=== PATIENT | female | born 1995 ===

== ENCOUNTER 2017-05-26 13:08 | Emergency (ER) | payer SELFPAY ==
--- NOTE | 2017-05-26 14:24 | ED.PDOC ---
History of Present Illness - General Chief Complaint: Abdominal Pain Time Seen by Provider: 05/26/17 14:10 Information Source: patient Exam Limitations: no limitations - History of Present Illness Initial Comments: Patient comes in with 1 day history of LLQ abdominal pain. Pain is moderate, dull, and like something is cramping in there. It has been constant since this morning and is worse with movement and deep breathing. She denies any trauma or recent injury or change in activity. At first she thought it might be menses cramps but states now it feels different. Patient states on had a hard stool with some pain and subsequent BRBPR. She has continued to have some on the toliet paper Abdominal Pain Onset Location: LUQ, LLQ Pain Radiation: no radiation Quality: moderate Timing/Duration: 7-24 hours Improving Factors: nothing Worsening Factors: movement Associated Symptoms: denies symptoms Review of Systems - Review of Systems Constitutional: States: no symptoms reported. Denies: chills, fever EENTM: States: no symptoms reported. Denies: ear pain, nose pain, throat pain Respiratory: States: no symptoms reported. Denies: cough, short of breath, wheezing Cardiology: States: no symptoms reported. Denies: chest pain, edema, palpitations Gastrointestinal/Abdominal: States: see HPI Genitourinary: States: no symptoms reported. Denies: dysuria, frequency Musculoskeletal: States: no symptoms reported Skin: States: no symptoms reported Family Medical History - Family History Mother Family History: Unknown Physical Exam - Physical Exam General Appearance: Alert, No apparent distress Eyes, Ears, Nose, Throat Exam: PERRL/EOMI, normal ENT inspection, TMs normal, pharynx normal Neck: non-tender, full range of motion, supple, normal inspection Respiratory: chest non-tender, lungs clear, normal breath sounds, no respiratory distress Cardiovascular/Chest: normal peripheral pulses, regular rate, rhythm, no edema, no gallop, no JVD, no murmur Peripheral Pulses: No deficit Gastrointestinal/Abdominal: normal bowel sounds, soft, other - Mild TTP to LLQ with no rebound no guarding normal BS no masses Rectal Exam: normal exam, other - no stigmata of recent bleed negative guaiac no masses Progress - Progress Progress: 05/26/17 15:32 05/26/17 14:42 URINE CULTURE W/COLONY COUNT Stat Laboratory Results WBC 11.3 K/mm3 (4.8-10.8) H 05/26/17 14:42 RBC 5.05 M/mm3 (4.20-5.40) 05/26/17 14:42 Hgb 13.8 gm/dL (12.0-16.0) 05/26/17 14:42 Hct 41.6 % (36.0-47.0) 05/26/17 14:42 MCV 82.4 fl (81.0-99.0) 05/26/17 14:42 MCH 27.4 pg (27.0-31.0) 05/26/17 14:42 MCHC 33.3 g/dL (33.0-37.0) 05/26/17 14:42 RDW 13.6 % (11.5-14.5) 05/26/17 14:42 Plt Count 306 K/mm3 (130-400) 05/26/17 14:42 MPV 7.7 fl (7.40-10.4) 05/26/17 14:42 Absolute Neuts (auto) 7.10 K/uL (1.8-6.8) H 05/26/17 14:42 Absolute Lymphs (auto) 3.10 K/uL (1.0-3.4) 05/26/17 14:42 Absolute Monos (auto) 0.90 K/uL (0.2-0.8) H 05/26/17 14:42 Absolute Eos (auto) 0.20 K/uL (0.0-0.4) 05/26/17 14:42 Absolute Basos (auto) 0.10 K/uL (0.0-0.1) 05/26/17 14:42 Neutrophils % 62.4 % (42.0-78.0) 05/26/17 14:42 Lymphocytes % 27.1 % (20.0-50.0) 05/26/17 14:42 Monocytes % 8.3 % (2.0-9.0) 05/26/17 14:42 Eosinophils % 1.6 % (1.0-5.0) 05/26/17 14:42 Basophils % 0.6 % (0.0-2.0) 05/26/17 14:42 Sodium 141 mmol/L (135-145) 05/26/17 14:42 Potassium 4.3 mmol/L (3.6-5.0) 05/26/17 14:42 Chloride 106 mmol/L (101-111) 05/26/17 14:42 Carbon Dioxide 29 mmol/L (21-31) 05/26/17 14:42 Anion Gap 10.3 (12-18) L 05/26/17 14:42 BUN 12 mg/dL (7-18) 05/26/17 14:42 Creatinine 0.88 mg/dL (0.6-1.3) 05/26/17 14:42 BUN/Creatinine Ratio 13.6 (10-20) 05/26/17 14:42 Random Glucose 92 mg/dL (70-105) 05/26/17 14:42 Serum Osmolality 280.7 mOsm/L (275-295) 05/26/17 14:42 Calcium 9.7 mg/dL (8.4-10.2) 05/26/17 14:42 Total Bilirubin 0.5 mg/dL (0.2-1.0) 05/26/17 14:42 AST 30 IU/L (10-42) 05/26/17 14:42 ALT 54 IU/L (10-60) 05/26/17 14:42 Alkaline Phosphatase 50 IU/L (42-121) 05/26/17 14:42 Serum Total Protein 8.0 gm/dL (6.4-8.2) 05/26/17 14:42 Albumin 4.1 g/dl (3.2-5.5) 05/26/17 14:42 Globulin 3.9 gm/dL (2.3-3.5) H 05/26/17 14:42 Albumin/Globulin Ratio 1.1 (1.1-1.9) 05/26/17 14:42 Amylase 40 U/L (28-100) 05/26/17 14:42 Lipase 30 U/L (22-51) 05/26/17 14:42 Serum HCG, Qual Negative 05/26/17 14:42 Urine Color Yellow (Yellow) 05/26/17 14:42 Urine Appearance Sl cloudy (Clear) 05/26/17 14:42 Urine pH 6.0 (4.5-7.8) 05/26/17 14:42 Ur Specific [place] 1.025 (1.005-1.030) 05/26/17 14:42 Urine Protein 30 mg/dL 05/26/17 14:42 Urine Glucose (UA) Negative mg/dL (Negative) 05/26/17 14:42 Urine Ketones Negative mg/dL (NEGATIVE) 05/26/17 14:42 Urine Blood Large (Negative) H 05/26/17 14:42 Urine Nitrite Negative 05/26/17 14:42 Urine Bilirubin Negative (NEGATIVE) 05/26/17 14:42 Urine Urobilinogen 0.2 mg/dL (0.2-1.0) 05/26/17 14:42 Ur Leukocyte Esterase Small (Negative) H 05/26/17 14:42 Urine RBC 20-30 /hpf H 05/26/17 14:42 Urine WBC 5-10 /hpf H 05/26/17 14:42 Ur Epithelial Cells 3-5 /hpf 05/26/17 14:42 Urine Bacteria 1+ 05/26/17 14:42 normal Abdominal Xray Departure - Departure Clinical Impression: UTI (urinary tract infection) Disposition: Discharge to Home or Self Care Condition: Good Departure Forms: ED Discharge - Pt. Copy, Patient Portal Self Enrollment Instructions: DI for Abdominal Pain-Adult Diet: resume usual diet Prescriptions: Sulfa/Trimeth 800/160 (Ds) Tab [Bactrim DS] 1 tablet PO BID 7 Days #14 tablet Home Medications: Ambulatory Orders Sulfa/Trimeth 800/160 (Ds) Tab [Bactrim DS] 1 tablet PO BID 7 Days #14 tablet Additional Instructions: Return to ER for temp >100.5, increase bleeding, increase abdominal pain, or intractable bleeding Comments: Patient informed that BRPBR most likely from hard stools reported. Would take OTC Colace 100 mg po BID x 7 days. Return to Er for increased bleeding or pain. Patient also does have UTI. Rocephin given here and started on Bactrim DS.
[2017-05-26 14:58] VITALS: TEMP 97.4; O2SAT 96
--- NOTE | 2017-05-26 15:24 | RAD ---
EXAM DESCRIPTION: Abdomen Flat Upright CLINICAL HISTORY: 22 years Female ,pain COMPARISON: None. TECHNIQUE: Two views of the abdomen were provided.. FINDINGS: No free air is identified beneath the hemidiaphragms. No dilated loops of bowel to suggest obstruction. No abnormal calcifications noted. IMPRESSION: No acute plain film abnormality is identified. Electronically signed by: Trevon Gomez 05/26/2017 3:23 PM CDT
[2017-05-26] MEDS ORDERED: cefTRIAXone SODIUM 1 GM VIAL IM ONE (15:33)
[2017-05-26 16:26] VITALS: BP 109/73
== END 2017-05-26 16:05 | disposition home or self-care (01) ==
LOC: ER 13:08
DX: N39.0 Urinary tract infection, site not specified (principal)
CPT/HCPCS: 36415; 74019; 80053; 81001; 82150; 83690; 84703; 85025; 87086; J0696

== ENCOUNTER 2018-03-14 22:39 | Emergency (ER) | payer SELFPAY ==
[2018-03-14 22:56] VITALS: O2SAT 97
[2018-03-14] MEDS ORDERED: KETOROLAC TROMETHAMINE INJ 30 MG/ML VIAL IV ONE (23:23)
[2018-03-14] MEDS ORDERED: ORPHENADRINE CITRATE 30 MG/ML AMP IM ONE (23:23)
--- NOTE | 2018-03-14 23:28 | ED.PDOC ---
History of Present Illness - General Chief Complaint: Respiratory Problem Stated Complaint: cough, lump to neck area, fever, nausea Time Seen by Provider: 03/14/18 23:20 Source: patient Exam Limitations: no limitations - History of Present Illness Comments: Salma Hebert 23 y/o female came to ER with non productive cough,nasal congestion,painful lump on neck,and non radiating dull low back ache for the last 2 days.No ill contact.No bowel or bladder dysfunction,no history of back injury. Timing/Duration: other - 2 days Cough Quality/Degree: dry cough Possible Cause: no prior episodes Improving Factors: nothing Worsening Factors: nothing Associated Symptoms: cough, fever/chills, nasal congestion Allergies/Adverse Reactions: Allergies NO KNOWN ALLERGY Allergy (Verified 05/26/17 14:57) Home Medications: Ambulatory Orders Sulfa/Trimeth 800/160 (Ds) Tab [Bactrim DS] 1 tablet PO BID 7 Days #14 tablet 05/26/17 Oseltamivir Capsule [Tamiflu] 75 mg PO BID 5 Days #10 capsule 03/15/18 Sulfa/Trimeth 800/160 (Ds) Tab [Bactrim DS] 1 tablet PO BID 7 Days #14 tablet 03/15/18 Review of Systems - Review of Systems Constitutional: States: fever EENTM: States: see HPI, nose congestion Respiratory: States: see HPI, cough Cardiology: States: no symptoms reported Gastrointestinal/Abdominal: States: no symptoms reported Genitourinary: States: no symptoms reported Musculoskeletal: States: see HPI, back pain Skin: States: no symptoms reported Neurological: States: no symptoms reported Past Medical History (General) - Patient Medical History Hx Seizures: No Hx Stroke: No Hx Dementia: No Hx Asthma: No Hx of COPD: No Hx Cardiac Disorders: No Hx Congestive Heart Failure: No Hx Pacemaker: No Hx Hypertension: No Hx Thyroid Disease: No Hx Diabetes: No Hx Gastroesophageal Reflux: No Hx Renal Disease: No Hx of HIV: No Hx MRSA: No Surgical History: no surgical history - Vaccination History Hx Tetanus, Diphtheria Vaccination: No Hx Influenza Vaccination: No Hx Pneumococcal Vaccination: No - Social History Hx Tobacco Use: No Hx Alcohol Use: Yes - social Hx Substance Use: No Hx Substance Use Treatment: No Hx Depression: No - Female History Patient is a Female of Child Bearing Age (10 -59 yrs old): Yes Hx Last Menstrual Period: 03/11/18 Patient : No Family Medical History - Family History Mother Family History: No Known Physical Exam - Physical Exam General Appearance: Alert, Comfortable, No apparent distress Eye Exam: bilateral normal ENT Exam: normal ENT inspection, hearing grossly normal, TMs normal, nasal congestion, pharyngeal erythema Neck: full range of motion, supple, normal inspection, trachea midline, lymphadenopathy (R) Respiratory: chest non-tender, lungs clear, normal breath sounds Cardiovascular/Chest: normal peripheral pulses, regular rate, rhythm, no murmur Gastrointestinal/Abdominal: non tender, soft Extremity: no pedal edema, other - Back-rom slightly painful lateral flexion right/left Neurologic: no motor/sensory deficits, alert, oriented x 3, other - negative straight leg raising test bilaterally Skin Exam: normal color, warm/dry Progress - Progress Progress: 03/15/18 00:23 Vital Signs - 8 hr 03/14/18 03/14/18 22:49 23:04 Temperature 102 F H Pulse Rate [ 112 H left] Respiratory 18 18 Rate Blood Pressure 118/78 [left] O2 Sat by Pulse 97 Oximetry - Results/Orders Results/Orders: Laboratory Tests 03/14/18 03/14/18 03/14/18 22:56 23:21 23:50 WBC 8.5 RBC 5.19 Hgb 14.1 Hct 42.8 MCV 82.4 MCH 27.1 MCHC 32.9 L RDW 13.7 Plt Count 254 MPV 7.6 Absolute Neuts (auto) 5.70 Absolute Lymphs (auto) 1.70 Absolute Monos (auto) 1.00 H Absolute Eos (auto) 0.00 Absolute Basos (auto) 0.10 Neutrophils % 67.2 Lymphocytes % 19.4 L Monocytes % 12.2 H Eosinophils % 0.5 L Basophils % 0.7 Urine Color Yellow Urine Appearance Sl cloudy Urine pH 6.5 Ur Specific [place] 1.025 Urine Protein 100 H Urine Glucose (UA) Negative Urine Ketones Negative Urine Blood Large H Urine Nitrite Negative Urine Bilirubin Negative Urine Urobilinogen 0.2 Ur Leukocyte Esterase Moderate H Urine RBC Tntc H Urine WBC Tntc H Ur Epithelial Cells 3-5 Urine Bacteria 2+ H Urine Mucus Small Group A Strep Rapid Negative Flu/strep/monotest-negative Discuss test result with patient that flu test was negative but she has symptoms of "flu" and did not get flu vaccination so she will be treated for flu symptoms with Tamiflu and for uti - EKG/XRAY/CT XRAY: chest - and lumbar spine -no acute findings noted Departure - Departure Clinical Impression: Flu-like symptoms Urinary tract infection Qualifiers: Urinary tract infection type: site unspecified Hematuria presence: with hematuria Qualified Code(s): N39.0 - Urinary tract infection, site not specified Time of Disposition: 00:36 Disposition: Discharge to Home or Self Care Condition: Fair Departure Forms: ED Discharge - Pt. Copy, Patient Portal Self Enrollment Instructions: Viral Upper Respiratory Infection, Adult (DC), Urinary Tract Infection, Adult (DC), Urinary Tract Infections in Adults Prescriptions: Oseltamivir Capsule [Tamiflu] 75 mg PO BID 5 Days #10 capsule Sulfa/Trimeth 800/160 (Ds) Tab [Bactrim DS] 1 tablet PO BID 7 Days #14 tablet Home Medications: Ambulatory Orders Sulfa/Trimeth 800/160 (Ds) Tab [Bactrim DS] 1 tablet PO BID 7 Days #14 tablet 05/26/17 Oseltamivir Capsule [Tamiflu] 75 mg PO BID 5 Days #10 capsule 03/15/18 Sulfa/Trimeth 800/160 (Ds) Tab [Bactrim DS] 1 tablet PO BID 7 Days #14 tablet 03/15/18 Additional Instructions: May take over the counter cough/cold medication,Benadryl 1-2 capsule at bedtime;Use nasal saline rinse 3 x a day as needed for nasal congestion;Tylenol 500 mg one tablet every 6 hours for fever;Return to ER as needed
--- NOTE | 2018-03-14 23:56 | RAD ---
CLINICAL HISTORY: cough/fever COMPARISON: None. 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 Lungs are clear without consolidation, atelectasis, mass or edema. There is no pleural effusion. There is no pneumothorax. There are no acute osseous findings. IMPRESSION: Clear lungs. Electronically signed by: Daryl Ohara MD 03/14/2018 11:54 PM AUTOMOBILE MECHANIC HELPER
--- NOTE | 2018-03-14 23:56 | RAD ---
CLINICAL HISTORY: pain COMPARISON: None. TECHNIQUE: XR LUMBAR SPINE 2-3 VIEWS 03/14/2018 11:24 PM STAMP PRESSER FINDINGS: There is no acute fracture. Alignment is anatomic. There are several small calculi involving the mid and upper pole right kidney measuring up to 4 mm. Disc spaces are maintained. Vertebral body heights are preserved. Soft tissues are unremarkable. IMPRESSION: No acute fracture or subluxation. Electronically signed by: Daryl Ohara MD 03/14/2018 11:54 PM STAMP PRESSER
[2018-03-15] MEDS ORDERED: OSELTAMIVIR 75 MG CAP PO ONE (00:19)
[2018-03-15] MEDS ORDERED: cefTRIAXone SODIUM 1 GM VIAL IM ONE (00:30)
[2018-03-15] MEDS ORDERED: BENZONATATE PERLES 100 MG CAP PO ONE (00:34)
[2018-03-15] MEDS ORDERED: diphenhydrAMINE HCL 25 MG CAP PO ONE (00:34)
[2018-03-15] MEDS ORDERED: diphenhydrAMINE HCL 25 MG CAP ONE (00:35)
[2018-03-15] MEDS ORDERED: BENZONATATE PERLES 100 MG CAP ONE (00:35)
[2018-03-15] MEDS ORDERED: LIDOCAINE 1% 2 ML VIAL INJ ONE (00:36)
[2018-03-15] MEDS ORDERED: traMADol HCL 50 MG (ER DISP) # 6 TABS PO ONE (00:45)
[2018-03-15 00:59] VITALS: BP 112/72; TEMP 101.4
== END 2018-03-15 00:58 | disposition home or self-care (01) ==
LOC: ER 22:39
DX: J11.1 Influenza due to unidentified influenza virus with other respiratory manifestations (principal); N39.0 Urinary tract infection, site not specified; R31.9 Hematuria, unspecified
CPT/HCPCS: 71046; 72100; 81001; 85025; 86403; 87070; 87086; 87502; 87880; J0696; J1885; J2360; Q0163

== ENCOUNTER 2018-04-11 18:09 | Emergency (ER) | payer SELFPAY ==
--- NOTE | 2018-04-11 18:48 | ED.PDOC ---
History of Present Illness - General Chief Complaint: Back Pain or Injury Stated Complaint: back pain Time Seen by Provider: 04/11/18 18:35 Source: patient Exam Limitations: no limitations - History of Present Illness Initial Comments: Salma Hebert 23 y/o female came to ER with dull back pains and lower abdominal cramps since this am.Denies vomiting or diarrhea no BM or urination since this am.Stated heard a pop on her back this morning which made it worse. Timing/Duration: 4-6 hours Quality/Severity: dullness Back Pain Location: lumbar spine Back Pain Radiation: other - lower abdomen Method of Injury/Prior Injury: unknown Improving Factors: rest Worsening Factors: movement Associated Symptoms: other - NO bowel or bladder dysfunctions Allergies/Adverse Reactions: Allergies NO KNOWN ALLERGY Allergy (Verified 05/26/17 14:57) Home Medications: Ambulatory Orders Acetamin W/Cod #3 Tab [Tylenol w/CODEINE #3] 1 ea PO Q6HRS PRN #14 tab 04/11/18 Review of Systems - Review of Systems Constitutional: States: no symptoms reported EENTM: States: no symptoms reported Respiratory: States: no symptoms reported Cardiology: States: no symptoms reported Gastrointestinal/Abdominal: States: no symptoms reported Musculoskeletal: States: see HPI, back pain All other Systems: Reviewed and Negative, No Change from Baseline Past Medical History (General) - Patient Medical History Hx Seizures: No Hx Stroke: No Hx Dementia: No Hx Asthma: No Hx of COPD: No Hx Cardiac Disorders: No Hx Congestive Heart Failure: No Hx Pacemaker: No Hx Hypertension: No Hx Thyroid Disease: No Hx Diabetes: No Hx Gastroesophageal Reflux: No Hx Renal Disease: No Hx of HIV: No Hx MRSA: No Surgical History: no surgical history - Vaccination History Hx Tetanus, Diphtheria Vaccination: No Hx Influenza Vaccination: No Hx Pneumococcal Vaccination: No - Social History Hx Tobacco Use: No Hx Alcohol Use: Yes - social Hx Substance Use: No Hx Substance Use Treatment: No Hx Depression: No Hx Physical Abuse: No Hx Emotional Abuse: No - Female History Hx Last Menstrual Period: 03/11/18 Patient : No Family Medical History - Family History Mother Family History: No Known Physical Exam - Physical Exam General Appearance: Alert, Comfortable, No apparent distress Eyes, Ears, Nose, Throat Exam: normal ENT inspection Neck Exam: non-tender, full range of motion, normal alignment, normal inspection Cardiovascular/Respiratory: regular rate, rhythm, normal peripheral pulses, normal breath sounds, no respiratory distress Peripheral Pulses: radial,right: 2+, radial,left: 2+ Gastrointestinal/Abdominal: normal bowel sounds, non tender, soft, no organomegaly Back Exam: no vertebral tenderness, decreased range of motion, muscle spasm - lumbar muscle Extremity Exam: non-tender, no pedal edema Neurologic: alert, oriented x 3 Skin Exam: normal color, warm/dry Progress - Progress Progress: 04/11/18 21:35 Vital Signs - 8 hr 04/11/18 18:30 Temperature 98.4 F Pulse Rate [ 91 H Left Radial] Respiratory 20 Rate Blood Pressure 148/90 [Left Arm] O2 Sat by Pulse 98 Oximetry - Results/Orders Results/Orders: 04/11/18 18:38 IV Care:Saline Lock per Protoc QSHIFT 04/11/18 18:41 Urine Culture Stat Laboratory Results - last 24 hr 04/11/18 04/11/18 04/11/18 18:38 18:41 18:54 WBC 14.9 H RBC 5.34 Hgb 14.4 Hct 43.7 MCV 81.9 MCH 27.0 MCHC 32.9 L RDW 14.3 Plt Count 340 MPV 7.4 Absolute Neuts (auto) 10.50 H Absolute Lymphs (auto) 3.10 Absolute Monos (auto) 1.20 H Absolute Eos (auto) 0.10 Absolute Basos (auto) 0.10 Neutrophils % 70.3 Lymphocytes % 20.6 Monocytes % 7.8 Eosinophils % 0.5 L Basophils % 0.8 Sodium Potassium Chloride Carbon Dioxide Anion Gap BUN Creatinine BUN/Creatinine Ratio Random Glucose Serum Osmolality Calcium Total Bilirubin AST ALT Alkaline Phosphatase Serum Total Protein Albumin Globulin Albumin/Globulin Ratio Urine Color Yellow Urine Appearance Clear Urine pH 7.5 Ur Specific [place] 1.020 Urine Protein 30 Urine Glucose (UA) Negative Urine Ketones Negative Urine Blood Large H Urine Nitrite Negative Urine Bilirubin Negative Urine Urobilinogen 0.2 Ur Leukocyte Esterase Small H Urine RBC 5-10 H Urine WBC 5-10 H Ur Epithelial Cells 0 Urine Bacteria Rare Urine HCG, Qual Negative 04/11/18 18:54 WBC RBC Hgb Hct MCV MCH MCHC RDW Plt Count MPV Absolute Neuts (auto) Absolute Lymphs (auto) Absolute Monos (auto) Absolute Eos (auto) Absolute Basos (auto) Neutrophils % Lymphocytes % Monocytes % Eosinophils % Basophils % Sodium 140 Potassium 3.8 Chloride 103 Carbon Dioxide 28 Anion Gap 12.8 BUN 10 Creatinine 0.91 BUN/Creatinine Ratio 11.0 Random Glucose 117 H Serum Osmolality 279.5 Calcium 9.2 Total Bilirubin 0.5 AST 34 ALT 59 Alkaline Phosphatase 52 Serum Total Protein 7.7 Albumin 4.0 Globulin 3.7 H Albumin/Globulin Ratio 1.1 Urine Color Urine Appearance Urine pH Ur Specific [place] Urine Protein Urine Glucose (UA) Urine Ketones Urine Blood Urine Nitrite Urine Bilirubin Urine Urobilinogen Ur Leukocyte Esterase Urine RBC Urine WBC Ur Epithelial Cells Urine Bacteria Urine HCG, Qual - EKG/XRAY/CT CT Ordered: Yes - abd/p-right distal ureteral calculus;staghorn calculus left Departure - Departure Clinical Impression: Right distal ureteral calculus, Staghorn renal calculus Back pain Qualifiers: Back pain location: low back pain Chronicity: acute Back pain laterality: bilateral Sciatica presence: without sciatica Qualified Code(s): M54.5 - Low back pain Time of Disposition: 21:38 Disposition: Discharge to Home or Self Care Condition: Good Departure Forms: ED Discharge - Pt. Copy, Patient Portal Self Enrollment Instructions: Kidney Stones (DC), Kidney Stones in Adults, How to Strain Your Urine Prescriptions: Acetamin W/Cod #3 Tab [Tylenol w/CODEINE #3] 1 ea PO Q6HRS PRN #14 tab PRN Reason: Pain Home Medications: Ambulatory Orders Acetamin W/Cod #3 Tab [Tylenol w/CODEINE #3] 1 ea PO Q6HRS PRN #14 tab 04/11/18 Additional Instructions: Need to sign up with primary Md ROSA [phone];May also take over the counter ALEVE 1-2 tabs am/pm for pain;return to er as needed
[2018-04-11] MEDS ORDERED: MORPHINE SULFATE INJ 10 MG/ML VIAL IV ONE (19:31)
[2018-04-11] MEDS ORDERED: KETOROLAC TROMETHAMINE INJ 30 MG/ML VIAL IV ONE (19:31)
[2018-04-11] MEDS ORDERED: TAMSULOSIN 0.4 MG CAP PO ONE (19:31)
[2018-04-11] MEDS ORDERED: LACTATED RINGERS 1,000 ML IVS ONE (19:33)
[2018-04-11] MEDS ORDERED: PROCHLORPERAZINE INJ 10 MG/2 ML VIAL IV ONE (19:42)
[2018-04-11 19:45] VITALS: O2SAT 98
--- NOTE | 2018-04-11 20:40 | CT ---
EXAM DESCRIPTION: Abdoment/Pelvis w/o Contrast CLINICAL HISTORY: pain flank COMPARISON: None Available. TECHNIQUE: Contiguous axial images of the abdomen and pelvis were obtained followed by reconstruction images. This exam was performed according to our departmental dose-optimization program, which includes automated exposure control, adjustment of the mA and/or kV according to patient size and/or use of iterative reconstruction technique. FINDINGS: There is a left staghorn calculus. No left ureteral dilatation. There is a right distal ureteral stone measuring 5 mm diameter with mild dilatation of the right ureter proximal to it. There is mild right hydronephrosis. There is fatty infiltration of liver. The liver, spleen, pancreas and kidneys are otherwise within normal limits. . The gallbladder is unremarkable by CT criteria. Adrenal glands are within normal limits. Aorta is of normal caliber and tapering. There is no free fluid in the abdomen or pelvis. There is no bowel obstruction. There is no stranding of the mesenteric fat to suggest an inflammatory response. The appendix is within normal limits. There is no pericecal inflammation. IMPRESSION: Obstructive distal right ureteral stone. Left staghorn calculus. Electronically signed by: Trevon Gomez 04/11/2018 8:36 PM CLINICAL BUSINESS MANAGER
[2018-04-11] MEDS ORDERED: HYDROCOD/APAP 10/325 (ER DISP) # 3 tablets PO ONE (21:39)
[2018-04-11 22:22] VITALS: BP 135/98; TEMP 97.9
== END 2018-04-11 22:25 | disposition home or self-care (01) ==
LOC: ER 18:09
DX: N13.2 Hydronephrosis with renal and ureteral calculous obstruction (principal); M54.5 Low back pain
CPT/HCPCS: 36415; 74176; 80053; 81001; 81025; 85025; 87086; J0780; J1885; J2270; J7120

== ENCOUNTER 2018-05-02 01:34 | Emergency (ER) | payer SELFPAY ==
[2018-05-02] MEDS ORDERED: ONDANSETRON INJ 4 MG/2 ML VIAL IV ONE (01:57)
[2018-05-02] MEDS ORDERED: SODIUM CHLORIDE 0.9% 1000ML 1,000 ML IVS ONE (01:57)
[2018-05-02] MEDS ORDERED: ACETAMINOPHEN 500 MG TAB PO ONE (03:25)
[2018-05-02] MEDS ORDERED: cefTRIAXone SODIUM 1 GM in SODIUM CHL 0.9% 50ML MIN-BAG+ 50 ML IVPB ONE (03:25)
[2018-05-02] MEDS ORDERED: KETOROLAC TROMETHAMINE INJ 30 MG/ML VIAL IV ONE (03:25)
== END 2018-05-02 04:55 | disposition home or self-care (01) ==
LOC: ER 01:34
DX: N12 Tubulo-interstitial nephritis, not specified as acute or chronic (principal); Z87.442 Personal history of urinary calculi
CPT/HCPCS: J0696; J1885; J2405; J7030; J7050